=== PATIENT | female | born 1960 | race Two or more races ===

== ENCOUNTER 2016-11-18 20:58 | Emergency (ER) | payer MEDICAID ==
[~2016-11-18] VITALS: Ht 144.8 cm; Wt 59.4 kg
--- NOTE | 2016-11-18 21:20 | NUR ---
To bed 2 a 56 yo female bibself with c/o of productive cough for 1 week, green sputum per patient. Patient also reports of earache, sore throat and pain on the mid upper back with coughing. Patient is aaox4, ambulatory. No s/s of acute distress. Respiration even and unlabored. 98% o2 sat on room air. Skin warm and dry to touch. Afebrile. VSS. Gowned patient. Comfort measures rendered. Awaiting for er md pruitt.
--- NOTE | 2016-11-18 21:55 | NUR ---
RESIDENTIAL MANAGER Degrasse at bedside for eval.
[2016-11-18] MEDS ORDERED: IBUPROFEN 600 MG TABLET PO ONE ×2 (21:57→22:00)
[2016-11-18] MEDS ORDERED: ALBUTEROL FS 2.5 MG/3 ML VIAL.NEB ONE (21:59)
[2016-11-18] MEDS ORDERED: ALBUTEROL FS 2.5 MG/3 ML VIAL.NEB NEB ONE (22:00)
--- NOTE | 2016-11-18 22:11 | NUR ---
xr tech at bedside.
--- NOTE | 2016-11-18 22:11 | NUR ---
Ongoing breathing treatment by RT.
--- NOTE | 2016-11-18 23:13 | NUR ---
SYSTEMS INTEGRATION MANAGER Degrasse at bedside.
[2016-11-18 23:24] VITALS: BP 117/80
--- NOTE | 2016-11-18 23:24 | NUR ---
dPatient discharged to home in stable condition. Written and verbal after care instructions given. Patient verbalizes understanding of instruction. Patient is ambulatory with steady gait.
== END 2016-11-18 23:25 | disposition home or self-care (01) ==
LOC: ER 21:01
DX: M54.9 Dorsalgia, unspecified (principal); J40 Bronchitis, not specified as acute or chronic; F17.200 Nicotine dependence, unspecified, uncomplicated; E11.9 Type 2 diabetes mellitus without complications; J45.909 Unspecified asthma, uncomplicated; Z88.0 Allergy status to penicillin
CPT/HCPCS: 71010; 94640; 99283; A4606; Z7610